=== PATIENT | female | born 1990 | race African-American/Black ===

== ENCOUNTER 2021-08-17 15:40 | Emergency (ER) | payer OTHER ==
[~2021-08-17] VITALS: Ht 165.1 cm; Wt 150.0 kg
[2021-08-17] MEDS ORDERED: METHYLPREDNISOLONE SOD SUCC 125 MG/2 ML VIAL IM STA (22:31)
[2021-08-17] MEDS ORDERED: IBUPROFEN 600MG TABLET PO STA (22:31)
[2021-08-17] MEDS ORDERED: IBUP-2029 PO (22:40)
[2021-08-17] MEDS ORDERED: AMOX-494 PO (22:40)
[2021-08-17] MEDS ORDERED: PENICILLIN G BENZATHINE 1,200,000 UNITS/2ML SYR IM ONE (22:45)
[2021-08-17 22:57] VITALS: BP 147/91
== END 2021-08-17 23:28 | disposition home or self-care (01) ==
LOC: ER 15:40
DX: J02.9 Acute pharyngitis, unspecified (principal); M79.18 Myalgia, other site; E11.9 Type 2 diabetes mellitus without complications
CPT/HCPCS: 96372; 99284; J0561; J2930